=== PATIENT | female | born 1995 | race Caucasian/White ===

== ENCOUNTER 2019-04-17 07:52 | Outpatient (CLI) | payer OTHER ==
--- NOTE | 2019-04-17 08:27 | ULT ---
LEFT BREAST ULTRASOUND: Date: 04/17/2019 HISTORY: 23-year-old female with mass in the right breast. FINDINGS: Comparison made with exam of 09/01/2016. Sonographic evaluation of the area of palpable concern at the 10 o'clock position of the left breast redemonstrates a 1.3 cm well-circumscribed hypoechoic mass with smooth margins and no posterior shado wing, consistent with a fibroadenoma, and stable. IMPRESSION: BI-RADS Category 2 - Benign findings. Annual mammographic screening is recommended at age 40. POS: OFF
== END 2019-04-17 07:53 | disposition home or self-care (01) ==
LOC: BICULT 07:52
PROVIDERS: ATTEND Nurse Practitioner Family
DX: N63.20 Unspecified lump in the left breast, unspecified quadrant (principal)